=== PATIENT | female | born 1980 | race Caucasian/White ===

== ENCOUNTER 2018-10-16 11:48 | Emergency (ER) | payer OTHER ==
[2018-10-16] MEDS: ALBUTEROL 0.083% (NEB) 2.5 MG/3 ML AMP HHN ×2 (13:11→14:02)
[2018-10-16] MEDS: DEXAMETHASONE 4 MG TAB PO (13:22)
[2018-10-16] MEDS ORDERED: DEXAMETHASONE (1 MG/ML PO SYG) PO (13:30)
== END 2018-10-16 14:14 | disposition home or self-care (01) ==
LOC: FTE 14:14
DX: J45.901 Unspecified asthma with (acute) exacerbation (principal)
CPT/HCPCS: 94664; 99283-25

== ENCOUNTER 2019-04-13 23:52 | Emergency (ER) | payer OTHER ==
[2019-04-14] MEDS: ALBUTEROL 0.083% (NEB) 2.5 MG/3 ML AMP NEB (00:56)
[2019-04-14] MEDS: IPRATROPIUM (NEB) 0.5 MG/2.5 ML AMP NEB (00:56)
[2019-04-14] MEDS: LORAZEPAM 1 MG TAB PO (01:27)
[2019-04-14] MEDS: predniSONE 20 MG TAB PO (01:27)
== END 2019-04-14 02:30 | disposition home or self-care (01) ==
LOC: E/R 23:52
DX: J45.901 Unspecified asthma with (acute) exacerbation (principal)
CPT/HCPCS: 81025; 93005; 94664; 99284-25

== ENCOUNTER 2019-05-05 19:58 | Emergency (ER) | payer OTHER ==
[2019-05-05] MEDS: LIDOCAINE 2% (MDV) 20 ML INJ INJ (21:59)
[2019-05-05] MEDS: DIPHTH/TET/ACEL PERTUSS (ADULT) 0.5 ML VIAL IM* (22:19)
[2019-05-05] MEDS: SILVER NITRATE SWAB TOP (22:30)
[2019-05-05] MEDS: HYDROCODONE/APAP (5/325) TAB PO (23:36)
== END 2019-05-06 00:41 | disposition home or self-care (01) ==
LOC: FTE 05-06 00:41
DX: S61.012A Laceration without foreign body of left thumb without damage to nail, initial encounter (principal); J45.909 Unspecified asthma, uncomplicated; W26.0XXA Contact with knife, initial encounter; Y92.9 Unspecified place or not applicable
CPT/HCPCS: 64450; 90471; 90715; 99283-25